=== PATIENT | female | born 1960 | race Caucasian/White ===

== ENCOUNTER → 2016-04-09 | Outpatient (CLI) | payer BC ==
[2016-04-09 08:36] LABS: CH 32.6; HCT 42.2 % (34.0-46.0); HDW 2.51; HGB 13.9 gm/dL (11.4-16.0); MCH 31.8 pg (25.0-35.0); MCV 96.5 fL (80.0-100.0); Mean Platelet Volume 8.2; RBC 4.38 m/uL (3.80-5.40); RDW 13.5 % (11.5-15.5); WBC 5.1 k/uL (3.8-10.6)
[2016-04-09 08:47] LABS: ALT 42 U/L (9-52); AST 24 U/L (14-36); Alkaline Phosphatase 108 U/L (38-126); Anion Gap 12 mmol/L; Blood Urea Nitrogen 13 mg/dL (7-17); Calcium 9.3 mg/dL (8.4-10.2); Carbon Dioxide 26 mmol/L (22-30); Chloride 106 mmol/L (98-107); Cholesterol 223 mg/dL (<200); Glucose 98 mg/dL (74-99); HDL Cholesterol 57 mg/dL (40-60); Non-African American GFR(MDRD) >60 (>60 ml/min/1.73 sqM); Potassium 4.4 mmol/L (3.5-5.1); Sodium 144 mmol/L (137-145); Total Bilirubin 0.7 mg/dL (0.2-1.3); Total Protein 7.4 g/dL (6.3-8.2); Triglycerides 250 mg/dL (<150)
[2016-04-09 09:26] LABS: Appearance,Urine Clear (Clear); Bilirubin,Urine Negative (Negative); Glucose,Urine (UA) Negative (Negative); Ketones,Urine Negative (Negative); Leukocyte Esterase,Urine Negative (Negative); Mucus,Urine Rare /hpf; Nitrite,Urine Negative (Negative); PH, Urine 5.5 (5.0-8.0); Particle Count 2585; Protein,Urine Negative (Negative); RBC,Urine 1 /hpf (0-5); Specific Gravity,Urine 1.017 (1.001-1.035); Squamous Epithelial Cell,Urine 2 /hpf (0-4); UA Billing (MACRO vs. MICRO) MICRO; Urobilinogen,Urine <2.0 mg/dL (<2.0); WBC,Urine <1 /hpf (0-5)
== END | disposition home or self-care (01) ==
LOC: LABWHC1 08:17
PROVIDERS: ATTEND Family Medicine
DX: Z00.00 Encounter for general adult medical examination without abnormal findings (principal); E55.9 Vitamin D deficiency, unspecified
CPT/HCPCS: 36415; 80053; 80061; 81001; 82306; 84439; 84443; 85027

== ENCOUNTER → 2016-07-09 | Outpatient (CLI) | payer BC | LOC: LABWHC1 08:42 | PROVIDERS: ATTEND Internal Medicine Interventional Cardiology | DX: E03.9 Hypothyroidism, unspecified (principal) | CPT/HCPCS: 36415; 84439; 84443 ==

== ENCOUNTER → 2016-12-08 | Outpatient (CLI) | payer BC ==
--- NOTE | 2016-12-09 09:37 | MM ---
Reason for exam: screening (asymptomatic). Last mammogram was performed 1 year and 2 months ago. History: Patient is postmenopausal. Taking unspecified hormones for 5 years beginning at age 41. Physical Findings: A clinical breast exam by your physician is recommended on an annual basis and results should be correlated with mammographic findings. MG Screening Mammo w CAD Bilateral CC and MLO view(s) were taken. Prior study comparison: September 24, 2015, bilateral MG screening mammo w CAD. May 01, 2014, right breast MG work up mamm w CAD RT. The breast tissue is heterogeneously dense. This may lower the sensitivity of mammography. There is no discrete abnormality. ASSESSMENT: Negative, BI-RAD 1 RECOMMENDATION: Routine screening mammogram of both breasts in 1 year.
== END | disposition home or self-care (01) ==
LOC: RADMAMWWP 08:08
PROVIDERS: ATTEND Obstetrics & Gynecology
DX: Z12.31 Encounter for screening mammogram for malignant neoplasm of breast (principal)

== ENCOUNTER → 2018-02-09 | Outpatient (CLI) | payer BC ==
--- NOTE | 2018-02-09 22:24 | CT ---
EXAMINATION TYPE: CT angio COW [place] DATE OF EXAM: 02/09/2018 COMPARISON: 01/08/2016 HISTORY: 57-year-old female F/u cerebral aneurysm behind RT ear. TECHNIQUE: Contiguous axial scanning of the [place] performed with IV Contrast, patient inje cted with 100 mL of Isovue 370. Coronal/sagittal MIP reconstructions performed. 3-D reconstructions g enerated on a dedicated independent workstation. CT DLP: 1405.10 mGycm Automated exposure control for dose reduction was used. FINDINGS: Anterior and posterior circulations are patent. Mild atherosclerotic calcifications within the right carotid siphon. There is no significant stenosis, arterial occlusion, or aneurysmal changes seen. Dur al venous sinuses are patent IMPRESSION: INTRACRANIAL ANEURYSM IS NOT IDENTIFIED. ANTERIOR AND POSTERIOR CIRCULATIONS REMAIN PATENT. IF PERSIS TENT CLINICAL CONCERN, THE EXAM CAN BE REVIEWED WITH DIRECTED ATTENTION.
== END ==
LOC: RADCTMAIN 16:31
DX: I67.1 Cerebral aneurysm, nonruptured (principal)
CPT/HCPCS: 70496; Q9967

== ENCOUNTER → 2018-04-08 | Outpatient (CLI) | payer BC ==
--- NOTE | 2018-04-10 08:56 | MM ---
Reason for exam: screening (asymptomatic). Last mammogram was performed 1 year and 4 months ago. History: Patient is postmenopausal. Took unspecified hormones for 5 years beginning at age 41. MG Screening Mammo w CAD Bilateral CC and MLO view(s) were taken. Prior study comparison: December 08, 2016, bilateral MG screening mammo w CAD. September 24, 2015, bilateral MG screening mammo w CAD. The breast tissue is heterogeneously dense. This may lower the sensitivity of mammography. There is a focal asymmetry in the upper outer right breast posterior one third. ASSESSMENT: Incomplete: need additional imaging evaluation, BI-RAD 0 RECOMMENDATION: Special view mammogram of the right breast.
== END | disposition home or self-care (01) ==
LOC: RADMAMWWP 08:19
PROVIDERS: ATTEND Obstetrics & Gynecology
DX: Z12.31 Encounter for screening mammogram for malignant neoplasm of breast (principal)
CPT/HCPCS: 77067

== ENCOUNTER → 2018-04-22 | Outpatient (CLI) | payer BC ==
--- NOTE | 2018-04-22 10:01 | MM ---
Reason for exam: additional evaluation requested from abnormal screening. Last mammogram was performed less than 1 month ago. History: Patient is postmenopausal. Took unspecified hormones for 5 years beginning at age 41. Physical Findings: Nurse did not find any significant physical abnormalities on exam. MG Work Up Mamm w CAD RT Spot compression CC, spot compression MLO, and LM view(s) were taken of the right breast. Prior study comparison: April 08, 2018, bilateral MG screening mammo w CAD. December 08, 2016, bilateral MG screening mammo w CAD. There is no discrete abnormality including area of concern. These results were verbally communicated with the patient and result sheet given to the patient on 04/22/18. ASSESSMENT: Probably benign, BI-RAD 3 RECOMMENDATION: Follow-up diagnostic mammogram of the right breast in 6 months.
== END | disposition home or self-care (01) ==
LOC: RADMAMWWP 08:57
PROVIDERS: ATTEND Family Medicine
DX: R92.8 Other abnormal and inconclusive findings on diagnostic imaging of breast (principal)
CPT/HCPCS: 77065

== ENCOUNTER → 2018-12-20 | Outpatient (CLI) | payer BC ==
--- NOTE | 2018-12-20 20:09 | MR ---
EXAMINATION TYPE: MR foot RT wo/w con DATE OF EXAM: 12/20/2018 COMPARISON: None HISTORY: Mass on top of rt foot, no trauma CONTRAST: Standard multiplanar, multisequence MRI departmental protocol utilizing 7 mL intravenous Gadavist yoana olinium contrast. FINDINGS: There is a marker over the dorsum of the midfoot in the area of concern. On the T2 images t here is abnormal increased signal in the mid and proximal second metatarsal. No fracture line is seen . The other metatarsals appear intact. There is hallux valgus deformity. There is spurring at the fir st MP joint. There is mild ankle joint effusion. There is narrowing of the ankle joint space. Calcane us is intact. The medial and lateral flexor tendons of the ankle appear intact. Achilles tendon is in tact. Plantar fascia appears normal. There is mild increased synovial fluid at the first and second M P joints. IMPRESSION: There is edema in the proximal second metatarsal could relate to a stress fracture. Osteomyelitis is not excluded. No soft tissue mass seen. There is mild anterior spurring at the second tarsometatarsal joint. This could account for palpable mass. There is also similar mild edema in the adjacent second cuneiform bone. Slight increased fluid at the first and second MP joints consistent with mild synovitis. Hallux valgus and osteoarthritis at the first MP joint.
== END | disposition home or self-care (01) ==
LOC: RADMRIMAIN 17:40
PROVIDERS: ATTEND Podiatrist Foot & Ankle Surgery
DX: M19.071 Primary osteoarthritis, right ankle and foot (principal); M20.11 Hallux valgus (acquired), right foot
CPT/HCPCS: 73720; A9585

== ENCOUNTER → 2019-02-15 | Outpatient (CLI) | payer BC ==
--- NOTE | 2019-02-15 14:07 | MM ---
Reason for exam: follow-up at short interval from prior study. Last mammogram was performed 10 months ago. History: Patient is postmenopausal. Took unspecified hormones for 5 years beginning at age 41. Physical Findings: Nurse did not find any significant physical abnormalities on exam. MG 3D Diag Mammo W/Cad RT CC and MLO view(s) were taken of the right breast. Prior study comparison: April 22, 2018, right breast MG work up mamm w CAD RT. April 08, 2018, bilateral MG screening mammo w CAD. The breast tissue is heterogeneously dense. This may lower the sensitivity of mammography. There is no discrete abnormality. These results were verbally communicated with the patient and result sheet given to the patient on 02/15/19. ASSESSMENT: Negative, BI-RAD 1 RECOMMENDATION: Return to routine screening mammogram schedule for both breasts.
== END | disposition home or self-care (01) ==
LOC: RADMAMWWP 13:21
PROVIDERS: ATTEND Obstetrics & Gynecology
DX: R92.8 Other abnormal and inconclusive findings on diagnostic imaging of breast (principal)
CPT/HCPCS: 77061; 77065

== ENCOUNTER → 2020-02-27 | Outpatient (CLI) | payer BC ==
--- NOTE | 2020-02-28 13:18 | MM ---
Reason for exam: screening (asymptomatic). Last mammogram was performed 1 year ago. History: Patient is postmenopausal. Took unspecified hormones for 5 years beginning at age 41. Physical Findings: A clinical breast exam by your physician is recommended on an annual basis and results should be correlated with mammographic findings. MG 3D Screening Mammo W/Cad Bilateral CC and MLO view(s) were taken. Prior study comparison: February 15, 2019, right breast MG 3d diag mammo w/cad RT. April 22, 2018, right breast MG work up mamm w CAD RT. The breast tissue is heterogeneously dense. This may lower the sensitivity of mammography. No significant changes when compared with prior studies. ASSESSMENT: Benign, BI-RAD 2 RECOMMENDATION: Routine screening mammogram of both breasts in 1 year.
== END | disposition home or self-care (01) ==
LOC: RADMAMWWP 13:45
PROVIDERS: ATTEND Obstetrics & Gynecology
DX: Z12.31 Encounter for screening mammogram for malignant neoplasm of breast (principal)
CPT/HCPCS: 77063; 77067

== ENCOUNTER → 2021-04-04 | Outpatient (CLI) | payer BC ==
--- NOTE | 2021-04-05 06:02 | BD ---
EXAMINATION TYPE: Axial Bone Density DATE OF EXAM: 04/04/2021 COMPARISON: NONE CLINICAL HISTORY: Postmenopausal female. Height: 64 Weight: 163.5 FRAX RISK QUESTIONS: Alcohol (3 or more units per day): no Family History (Parent hip fracture): no Glucocorticoids (More than 3mos): no (Ex: prednisone, prednisolone, methylprednisolone, dexamethasone, and hydrocortisone). History of Fracture in Adulthood: no Secondary Osteoporosis: 1. Type 1 Diabetes: no 2. Hyperthyroidism: no 3. Menopause before 45: no 4. Malnutrition: no 5. Chronic liver disease: no Rheumatoid Arthritis: no Current Tobacco Use: no RISK FACTORS HISTORY OF: Surgery to Spine/Hip(right/left)/Wrist (right/left): no Family History of Osteoporosis: yes Active: yes Diet low in dairy products/other sources of calcium: no Postmenopausal woman: yes Lost more than 2 inches in height since high school: no MEDICATIONS: bp meds, cholesterol meds, vit d Thyroid Medications: synthroid How Lon years Additional History: EXAM MEASUREMENTS: Bone mineral densitometry was performed using the [employer]. Bone mineral density as measured about the Lumbar spine is: ----- L1-L4(G/cm2): 1.299 T Score Values are as follows: ----- L2: 0.2 ----- L3: -14 ----- L4: -1.5 ----- L1-L4: 1.0 Bone mineral density : baseline Bone mineral density about the R hip (g/cm2): 1.081 Bone mineral density about the L hip (g/cm2): 1.046 T Score values are as follows: -----R Neck: 0.3 -----L Neck: 0.1 -----R Total: 0.2 -----L Total: 0.4 Bone mineral density : baseline IMPRESSION: Normal (Values between +1 and -1 indicate normal bone mass). Consider repeating this study in 5 year s or sooner if there is some new clinical indication. NOTE: T-SCORE=SD OF THE YOUNG ADULT MEAN.
--- NOTE | 2021-04-05 12:11 | MM ---
Reason for exam: screening (asymptomatic). Last mammogram was performed 1 year and 1 month ago. History: Patient is postmenopausal. Took unspecified hormones for 5 years beginning at age 41. Physical Findings: A clinical breast exam by your physician is recommended on an annual basis and results should be correlated with mammographic findings. MG 3D Screening Mammo W/Cad Bilateral CC and MLO view(s) were taken. XCCL view(s) were taken of the left breast. Prior study comparison: February 27, 2020, bilateral MG 3d screening mammo w/cad. February 15, 2019, right breast MG 3d diag mammo w/cad RT. There are scattered fibroglandular densities. There is no discrete abnormality. ASSESSMENT: Negative, BI-RAD 1 RECOMMENDATION: Routine screening mammogram of both breasts in 1 year.
== END | disposition home or self-care (01) ==
LOC: RADMAMWWP 15:51
PROVIDERS: ATTEND Obstetrics & Gynecology
DX: Z12.31 Encounter for screening mammogram for malignant neoplasm of breast (principal); N95.1 Menopausal and female climacteric states
CPT/HCPCS: 77063; 77067; 77080

== ENCOUNTER → 2022-04-07 | Outpatient (CLI) | payer BC ==
--- NOTE | 2022-04-08 21:04 | MM ---
Reason for Exam: Screening (asymptomatic). Last screening mammogram was performed 12 month(s) ago. Patient History: Menarche at age 15. First Full-Term at age 22. Postmenopausal. Unspecified Hormone, starting at age 41 for 5 years. Risk Values: Francisca 5 year model risk: 1.3%. NCI Lifetime model risk: 6.6%. Prior Study Comparison: 02/15/2019 Right Diagnostic Mammogram, [facility]. 02/27/2020 Bilateral Screening Mammogram, [facility]. 04/04/2021 Bilateral Screening Mammogram, [facility]. Tissue Density: There are scattered fibroglandular densities. Findings: Analyzed By CAD. There is no suspicious group of microcalcifications or new suspicious mass in either breast. Overall Assessment: Negative, BI-RAD 1 Management: Screening Mammogram of both breasts in 1 year. 1. Patient should continue monthly self breast exams. 2. A clinical breast exam by your physician is recommended on an annual basis. 3. This exam should not preclude additional follow-up of suspicious palpable abnormalities. Electronically signed and approved by: Tashia Gallo M.D. Radiologist
== END | disposition home or self-care (01) ==
LOC: RADMAMWWP 16:37
PROVIDERS: ATTEND Obstetrics & Gynecology
DX: Z12.31 Encounter for screening mammogram for malignant neoplasm of breast (principal); Z78.0 Asymptomatic menopausal state
CPT/HCPCS: 77063; 77067

== ENCOUNTER → 2023-04-13 | Outpatient (CLI) | payer BC ==
--- NOTE | 2023-04-14 08:25 | MM ---
Reason for Exam: Screening (asymptomatic). Last screening mammogram was performed 12 month(s) ago. Patient History: Menarche at age 15. First Full-Term at age 22. Postmenopausal. Unspecified Hormone, starting at age 41 for 5 years. Risk Values: Francisca 5 year model risk: 1.3%. NCI Lifetime model risk: 6.4%. Prior Study Comparison: 02/27/2020 Bilateral Screening Mammogram, [facility]. 04/04/2021 Bilateral Screening Mammogram, [facility]. 04/07/2022 Bilateral MG 3D screening mammo w/cad, [facility]. Tissue Density: The breast tissue is heterogeneously dense. This may lower the sensitivity of mammography. Findings: Analyzed By CAD. There is no suspicious group of microcalcifications or new suspicious mass in either breast. Overall Assessment: Negative, BI-RAD 1 Management: Screening Mammogram of both breasts in 1 year. . Patient should continue monthly self-breast exams. A clinical breast exam by your physician is recommended on an annual basis. This exam should not preclude additional follow-up of suspicious palpable abnormalities. Note on Francisca scores and lifetime risk: 1. A Francisca score greater than 3% is considered moderate risk. If this is the case, consider specialist referral to assess eligibility for a risk reducing agent. 2. If overall lifetime risk for the development of breast cancer is 20% or higher, the patient may qualify for future screening with alternating mammogram and breast MRI. Electronically signed and approved by: Junior Kaufman M.D. Radiologis
== END | disposition home or self-care (01) ==
LOC: RADMAMWWP 15:58
PROVIDERS: ATTEND Obstetrics & Gynecology
DX: Z12.31 Encounter for screening mammogram for malignant neoplasm of breast (principal); Z78.0 Asymptomatic menopausal state
CPT/HCPCS: 77063; 77067

== ENCOUNTER → 2024-05-18 | Outpatient (CLI) | payer BC ==
[2024-05-18 10:08] VITALS: BP 129/83; PULSE 83; RESP 16; TEMP 97.8
--- NOTE | 2024-05-18 11:03 | P.HPOB ---
History of Present Illness H&P Date: 05/18/24 Chief Complaint: The patient is here for her routine gynecologic exam and ma mmogram. This is a 64-year-old -0-1-2 with an LMP of 2004. The patient is here to establish with this office. She previously saw Dr. Rivero for her gynecologic care. According to Dr. Rivero's records, her last Pap smear was negative on 03/20/2022 and she had a negative Pap smear on 01/18/2018. She is without gynecologic complaints and denies any postmenopausal bleeding. Review of Systems The patient's weight has been stable over the last year. She denies respiratory, cardiac, or G.I. problems. Past Medical History Past Medical History: GERD/Reflux, Hypertension, Thyroid Disorder Additional Past Medical History / Comment(s): Hypothyroidism. PAST STUDENT RECORDS SPECIALIST HISTORY: She has no history of STDs. History of Any Multi-Drug Resistant Organisms: None Reported Past Surgical History: Appendectomy Additional Past Surgical History / Comment(s): D&C. Colonoscopy 2019. Past Anesthesia/Blood Transfusion Reactions: No Reported Reaction Past Psychological History: No Psychological Hx Reported Smoking Status: Never smoker Past Alcohol Use History: Occasional (About 2 drinks every 2 weeks.) Past Drug Use History: None Reported Additional History: She has been since 2000 and this is her second marriage. She is self-employed and has a [employer] business. - Past Family History Mother Family Medical History: Hypertension, Myocardial Infarction (SC) Additional Family Medical History / Comment(s): of an SC. Father Family Medical History: CVA/TIA Additional Family Medical History / Comment(s): . Brother(s) Family Medical History: Cancer Additional Family Medical History / Comment(s): Twin brothers both of cancer, 1 from brain cancer and the other from throat cancer. Medications and Allergies Home Medications Medication Instructions Recorded Confirmed Type Atorvastatin [Lipitor] 10 mg PO DAILY 05/18/24 05/18/24 History Cholecalciferol (Vitamin D3) 50 mcg PO DAILY 05/18/24 05/18/24 History [Vitamin D3 (50 Mcg = 2000 Iu)] Famotidine [Pepcid] 20 mg PO DAILY 05/18/24 05/18/24 History Levothyroxine Sodium [Synthroid] 100 mcg PO DAILY 05/18/24 05/18/24 History amLODIPine [Norvasc] 5 mg PO DAILY 05/18/24 05/18/24 History carvediloL [Coreg] 3.125 mg PO DAILY 05/18/24 05/18/24 History Allergies Allergy/AdvReac Type Severity Reaction Status Date / Time cephalexin monohydrate Allergy Swelling Verified 05/18/24 09:46 [From Keflex] Penicillins Allergy Swelling Verified 05/18/24 09:46 latex AdvReac Rash/Hives Verified 05/18/24 09:46 Exam Vital Signs Temp Pulse Resp BP Pulse Ox 05/18/24 09:57 97.8 F 83 16 129/83 96 Intake and Output 05/17/24 05/18/24 05/18/24 22:59 06:59 14:59 Other: Weight 76.204 kg Height 5 feet 4 inches, weight 168 pounds, BMI 28.8. This is a well-developed well-nourished white female who is alert and oriented times 3 in no acute distress. HEENT: Within normal limits. NECK: Supple without mass or thyromegaly. CHEST AND LUNGS: Clear to auscultation. HEART: Regular rate and rhythm. BREASTS: Are without mass or discharge. AXILLARY EXAM: Negative for adenopathy. BACK: Negative for CVA tenderness. ABDOMEN: Soft, nontender, without palpable masses. PELVIC EXAM: Normal external genitalia with mild atrophy. Cervix and vagina appear normal with mild atrophy. There is no unusual discharge. There is no ev idence of prolapse. The uterus is midposition, nongravid size and nontender. There are no palpable adnexal masses or tenderness. RECTAL EXAM: Rectovaginal exam is negative for mass or tenderness and is negative for occult blood. EXTREMITIES: Nontender. IMPRESSION: 1. 64-year-old menopausal female with normal gynecologic exam. PLAN: 1. Pap smear cotest was performed. 2. Self breast awareness was discussed with the patient. We have also discussed symptoms associated with inflammatory breast cancer. 3. Screening mammogram will be done today. 4. Osteoporosis prevention was discussed. I have stressed the importance of adequate calcium, vitamin D and regular exercise. Recommended amounts of calcium and vitamin D were also discussed. After reviewing her bone density test from 04/04/2021, it was read as normal, however, L4 had a T-score of -1.5. We will plan on repeating the bone density test next year. 5. Colorectal cancer screening has been done with Cologuard testing through her PCP. 6. She was advised to return in one year for her annual well woman exam.
--- NOTE | 2024-05-18 17:13 | MM ---
Reason for Exam: Screening (asymptomatic). Last mammogram was performed 1 year(s) and 2 month(s) ago. Patient History: Menarche at age 15. First Full-Term at age 22. Postmenopausal. Unspecified Hormone, starting at age 41 for 5 years. Risk Values: Francisca 5 year model risk: 1.4%. NCI Lifetime model risk: 6.2%. Prior Study Comparison: 04/04/2021 Bilateral Screening Mammogram, [facility]. 04/07/2022 Bilateral MG 3D screening mammo w/cad, [facility]. 04/13/2023 Bilateral MG 3D screening mammo w/cad, [facility]. Tissue Density: There are scattered areas of fibroglandular density. Findings: Analyzed By CAD. There is no suspicious group of microcalcifications or new suspicious mass in either breast. Overall Assessment: Negative, BI-RAD 1 Management: Screening Mammogram of both breasts in 1 year. Patient should continue monthly self-breast exams. A clinical breast exam by your physician is recommended on an annual basis. This exam should not preclude additional follow-up of suspicious palpable abnormalities. Note on Francisca scores and lifetime risk: 1. A Francisca score greater than 3% is considered moderate risk. If this is the case, consider specialist referral to assess eligibility for a risk reducing agent. 2. If overall lifetime risk for the development of breast cancer is 20% or higher, the patient may qualify for future screening with alternating mammogram and breast MRI. [facility], , 05/18/2024 5:10 PM. Electronically signed and approved by: Tashia Gallo M.D. Radiologist
== END ==
LOC: WWCWWP 09:41
PROVIDERS: ATTEND Obstetrics & Gynecology
DX: N95.1 Menopausal and female climacteric states (principal); R92.323 Mammographic fibroglandular density, bilateral breasts; Z88.1 Allergy status to other antibiotic agents; Z88.0 Allergy status to penicillin; Z91.040 Latex allergy status
CPT/HCPCS: 77063; 77067